=== PATIENT | male | born 1955 | race Caucasian/White ===

== ENCOUNTER 2016-05-13 17:07 | Outpatient (CLI) | payer MEDICARE, OTHER ==
[2016-05-13 17:44] LABS: BASOPHILS % 0.1 (0.0-1.5); EOSINOPHILS % 0.5 % (0.0-6.8); LYMPHOCYTES # 0.5 # k/uL (0.6-4.0); MEAN CORPUSCULAR HEMOGLOBIN 25.5 pg (28.0-34.0); MONOCYTES # 0.3 # k/uL (0.0-0.9); MONOCYTES % 5.9 % (0.0-11.0); NEUTROPHILS # 4.1 # k/uL (1.4-7.7)
[2016-05-13 17:58] LABS: eGFR (African) > 60; eGFR (Non-African) > 60
== END 2016-05-13 17:10 ==
LOC: LABRHC 17:07
PROVIDERS: ATTEND Family Medicine
DX: Z12.5 Encounter for screening for malignant neoplasm of prostate (principal); I48.91 Unspecified atrial fibrillation; E03.9 Hypothyroidism, unspecified; R73.9 Hyperglycemia, unspecified; E79.0 Hyperuricemia without signs of inflammatory arthritis and tophaceous disease; I10 Essential (primary) hypertension; R79.1 Abnormal coagulation profile
CPT/HCPCS: 80053; 80162; 83036; 84153; 84443; 84550; 85025

== ENCOUNTER 2016-05-27 16:07 | Emergency (ER) | payer MEDICARE, OTHER ==
[2016-05-27] MEDS ORDERED: 0.9 % SODIUM CHLORIDE 1,000 ML IV ONE (16:23)
--- NOTE | 2016-05-27 16:28 | ED Physician Documentation ---
Palpitations - HISTORIAN Historian: patient - HPI Chief Complaint: Palpitations Additional Information: 61 yo M here from work for palpitations, diaphoresis. States only medical history is HTN. Symptoms started - PAST HX Home Medications: Ambulatory Orders Medication Instructions Recorded Aripiprazole [Abilify] 15 mg PO DAILY u2 07/26/15 Prazosin HCl 12 mg PO HS av 07/26/15 Cyanocobalamin (Vitamin B-12) 2,500 mcg SL DAILY u2 09/05/15 [Vitamin B-12] Diphenhydramine HCl [Benadryl] 25 mg PO 2 tabs prn PRN av 09/05/15 Hydroxyzine HCl 25 mg PO 1tab BID 2 tabs HS u2 09/05/15 Loperamide HCl [Anti-Diarrhea] 2 mg PO 2 tabs prn PRN u2 09/05/15 Simethicone 125 mg PO DAILY av 09/05/15 ED Results Lab/Radiology - Orders Orders: ED Orders Category Date Time Status Place Saline Lock/IV Now Care 05/27/16 16:21 Active CHEST 1 VIEW [RAD] Stat Exams 05/27/16 Ordered CBC/PLATELET/DIFF Stat Lab 05/27/16 16:22 Ordered CMP [CMP] Routine Lab 05/27/16 16:22 Ordered NT-proBNP Stat Lab 05/27/16 Ordered TROPONIN I (cTnI) Stat Lab 05/27/16 Ordered UA [URINALYSIS] Routine Lab 05/27/16 16:22 Ordered 0.9 % Sodium Chloride [Normal Saline] 1,000 ml Med 05/27/16 16:23 Active IV Q1H EKG WITH COMPARISON Stat Ther 05/27/16 16:22 Ordered Discharge Home Medications: Ambulatory Orders Aripiprazole [Abilify] 15 mg PO DAILY u2 07/26/15 Prazosin HCl 12 mg PO HS av 07/26/15 Cyanocobalamin (Vitamin B-12) [Vitamin B-12] 2,500 mcg SL DAILY u2 09/05/15 Diphenhydramine HCl [Benadryl] 25 mg PO 2 tabs prn PRN av 09/05/15 Hydroxyzine HCl 25 mg PO 1tab BID 2 tabs HS u2 09/05/15 Loperamide HCl [Anti-Diarrhea] 2 mg PO 2 tabs prn PRN u2 09/05/15 Simethicone 125 mg PO DAILY av 09/05/15
--- NOTE | 2016-05-27 16:32 | ED Physician Documentation ---
General Adult - HISTORIAN Historian: patient - HPI Chief Complaint: Weakness Additional Information: 61 yo M here for weakness. has not felt like eating the past couple of weeks, significant decreased food and fluid intake. No f/c/n/v/d. No abdominal pain. No diarrhea. was walking today and legs felt weak causing him to go to his knee and subsequently the ground. Did not hit his head and no injuries from the fall. Has had similar symptoms with infections in the past. Feels too weak to walk at this point. Does have bed sores per his report. Also has chronic peterson due to chronic dysuria. Medical history includes HTN, HLP, COPD, Afib. Timing: still present - ROS CONST: weakness EYES/ENT: none, sore throat CVS/RESP: denies: chest pain, shortness of breath, cough GI/: denies: abdominal pain, problems urinating MS/SKIN/LYMPH: none NEURO/PSYCH: difficulty walking. denies: headache, fainting, dizziness, tingling, numbness, difficulty with speech - PAST HX Past History: COPD, A-Fib, hypertension, other (HLP) Surgeries/Procedures: cholecystectomy Allergies/Adverse Reactions: Allergies Allergy/AdvReac Type Severity Reaction Status Date / Time penicillin G Allergy Hives Verified 05/27/16 17:46 Home Medications: Ambulatory Orders Medication Instructions Recorded Aripiprazole [Abilify] 15 mg PO DAILY u2 07/26/15 Prazosin HCl 12 mg PO HS av 07/26/15 Cyanocobalamin (Vitamin B-12) 2,500 mcg SL DAILY u2 09/05/15 [Vitamin B-12] Diphenhydramine HCl [Benadryl] 25 mg PO 2 tabs prn PRN av 09/05/15 Hydroxyzine HCl 25 mg PO 1tab BID 2 tabs HS u2 09/05/15 Loperamide HCl [Anti-Diarrhea] 2 mg PO 2 tabs prn PRN u2 09/05/15 Simethicone 125 mg PO DAILY av 09/05/15 - SOCIAL HX Smoking History: quit greater than 1 year Alcohol Use: none Drug Use: none - FAMILY HX Family History: No - REVIEWED ASSESSMENTS Nursing Assessment Reviewed: Yes Vitals Reviewed: Yes ED Results Lab/Radiology - Radiology Radiology Impressions: EKG: afib rate 113, normal intervals outside of [place]. Normal axis, no ectopy, No acute ST or T wave changes. - Orders Orders: ED Orders Category Date Time Status Place Saline Lock/IV Now Care 05/27/16 16:21 Active CHEST 1 VIEW [RAD] Stat Exams 05/27/16 Ordered CBC/PLATELET/DIFF Stat Lab 05/27/16 16:22 Ordered CMP [CMP] Routine Lab 05/27/16 16:22 Ordered NT-proBNP Stat Lab 05/27/16 Ordered TROPONIN I (cTnI) Stat Lab 05/27/16 Ordered UA [URINALYSIS] Routine Lab 05/27/16 16:22 Ordered 0.9 % Sodium Chloride [Normal Saline] 1,000 ml Med 05/27/16 16:23 Active IV Q1H EKG WITH COMPARISON Stat Ther 05/27/16 16:22 Ordered General Adult Physical Exam - PHYSICAL EXAM GENERAL APPEARANCE: no distress EENT: dry mucous membranes NECK: normal inspection, supple. No: lymphadenopathy RESPIRATORY: no resp distress, chest non-tender, breath sounds normal CVS: heart sounds normal, irregularly irregular rhy ABDOMEN: soft, normal bowel sounds, no distension, non-tender, other (obsese) SKIN: warm/dry, normal color EXTREMITIES: non-tender, edema (2+ b/l LE edema) NEURO: oriented X3, CN's nml as tested, motor nml, sensation nml Discharge Clincal Impression: Dehydration, Elevated INR Afib Qualifiers: Atrial fibrillation type: chronic Qualified Code(s): I48.2 - Chronic atrial fibrillation Referrals: Jonathan Adair MD [Primary Care Provider] - 2 Days Home Medications: Ambulatory Orders Aripiprazole [Abilify] 15 mg PO DAILY u2 07/26/15 Prazosin HCl 12 mg PO HS av 07/26/15 Cyanocobalamin (Vitamin B-12) [Vitamin B-12] 2,500 mcg SL DAILY u2 09/05/15 Diphenhydramine HCl [Benadryl] 25 mg PO 2 tabs prn PRN av 09/05/15 Hydroxyzine HCl 25 mg PO 1tab BID 2 tabs HS u2 09/05/15 Loperamide HCl [Anti-Diarrhea] 2 mg PO 2 tabs prn PRN u2 09/05/15 Simethicone 125 mg PO DAILY av 09/05/15 Comments: Patient hemodynamically stable. He is in afib with episodes into the 110's but asymptomatic during these bouts and has not taken home metoprolol today. Ambulatory to toilet in ER. Labs reassuring. Given NS bolus and feeling better. INR is 5+ but was 8 when checked at PCM last week. Advised to continue plan as per PCM for INR treatment. Did not hit his head during fall, no AMS. Urine not infected, no evidence for systemic infection. Mild anemia which appears chronic on record review. Discussed and rec f/u with PCM. Condition: Good Disposition: 01 HOME, SELF-CARE Decision to Admit: NO Decision Time: 20:12
--- NOTE | 2016-05-27 16:36 | Diagnostic Imaging Report ---
[facility] [address] [facility].[address] 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 The heart is at the upper limits of normal in size. There is mild pulmonary vascular congestion.. The bony thorax is unremarkable. No pneumothorax or pleural effusion is seen. Impression: Pulmonary vascular congestion Clear peripheral lung godoy Electronically signed on May 27, 2016 4:34:26 PM [employer]Y CE[employer] ASSEMBL[employer] MACHINE TENDER by: Wilbert MARTINEZ
[2016-05-27 17:44] LABS: BASOPHILS % 0.2 (0.0-1.5); EOSINOPHILS % 0.3 % (0.0-6.8); LYMPHOCYTES # 0.5 # k/uL (0.6-4.0); MONOCYTES # 0.4 # k/uL (0.0-0.9); MONOCYTES % 6.4 % (0.0-11.0); NEUTROPHILS # 4.9 # k/uL (1.4-7.7)
[2016-05-27 18:08] LABS: eGFR (African) > 60; eGFR (Non-African) > 60
[2016-05-27] MEDS ORDERED: HYDROcodone /APAP 5/325 1 EACH TABLET PO ONE (19:04)
[2016-05-27] MEDS ORDERED: METOPROLOL TARTRATE 50 MG TABLET PO ONE (19:29)
[2016-05-27 21:39] VITALS: BP 141/82
[2016-05-28 06:01] LABS: APPEARANCE,URINE CLEAR (CLEAR); COLOR,URINE YELLOW (YELLOW); OCCULT BLOOD,URINE 32 (NEGATIVE); UROBILINOGEN URINE >=8.0 Eu (0.2-1.0)
== END 2016-05-27 20:37 | disposition home or self-care (01) ==
LOC: ED 16:07
DX: I48.2 Chronic atrial fibrillation (principal); E86.0 Dehydration
CPT/HCPCS: 71010; 80053; 80162; 83880; 84484; 85025; 85610; 87040; A9270; J7030; 81002; 99283; S1016

== ENCOUNTER 2016-06-10 17:10 | Emergency (ER) | payer MEDICARE, OTHER ==
--- NOTE | 2016-06-10 17:25 | ED Physician Documentation ---
General Adult - HISTORIAN Historian: patient, paramedics - HPI Stated Complaint: Blood in FC Chief Complaint: General Adult Onset: days ago (2) Timing: still present Severity: moderate Further Comments: yes (Pt is a 61 yo male with morbid obesity and a catheter for chronic dysuria. Pt was supposed to move to a care home today, when it was noticed that he had blood in his peterson catheter. Pt c/o having no appetite and not eating or drinking very much for several days. Pt has irritible bowel syndrome. His bm's have been as they usually are, he says. Other PMHx includes COPD, Afib, HTN, HLD. Pt is supposed to be on Bactrim, but based on pill counts and date prescribed, it appears he has not been taking it as he is supposed to.) - ROS CONST: weakness, other (malaise, no appetitie) EYES/ENT: none CVS/RESP: none GI/: problems urinating (chronic dysuria with indwelling peterson cath. -- blood in cath today.) MS/SKIN/LYMPH: other (R leg lesion) - PAST HX Past History: COPD, A-Fib, hypertension, other (HLD, Psych d/o.) Surgeries/Procedures: cholecystectomy Allergies/Adverse Reactions: Allergies Allergy/AdvReac Type Severity Reaction Status Date / Time penicillin G Allergy Hives Verified 06/10/16 17:40 Home Medications: Ambulatory Orders Medication Instructions Recorded Aripiprazole [Abilify] 10 mg PO HS u2 07/26/15 Prazosin HCl 12 mg PO HS av 07/26/15 Hydroxyzine HCl 25 mg PO 1tab BID 2 tabs HS u2 09/05/15 Simethicone 125 mg PO DAILY av 09/05/15 Hydrocodone/Acetaminophen 1 each PO TID PRN 06/10/16 [Hydrocodon-Acetaminophen 5-325] Sulfamethoxazole/Trimethoprim 1 each PO BID 06/10/16 [Bactrim Ds] - SOCIAL HX Smoking History: non-smoker - FAMILY HX Family History: No - VITAL SIGNS Vital Signs: Vital Signs Temp Pulse Resp BP Pulse Ox 98.1 F 94 H 18 134/59 99 06/10/16 17:10 06/10/16 17:10 06/10/16 17:10 06/10/16 17:10 03/06/17 17:10 Progress - Progress Progress: Peterson catheter changed NS 500 cc IVF hematuria without wbc's in u/a TSH, Digoxin level pending. Continue Bactrim DS x 7 days d/c to care home, f/u pcp. ED Results Lab/Radiology - Orders Orders: ED Orders Category Date Time Status BNP [NT-proBNP] Stat Lab 06/10/16 Ordered CBC/PLATELET/DIFF Routine Lab 06/10/16 Ordered CMP Routine Lab 06/10/16 Ordered General Adult Physical Exam - PHYSICAL EXAM GENERAL APPEARANCE: mild distress EENT: dry mucous membranes NECK: normal inspection, supple RESPIRATORY: no resp distress, chest non-tender, breath sounds normal, other ( distant breath sounds) CVS: irregularly irregular rhy ABDOMEN: soft, no organomegaly, normal bowel sounds. No: tenderness BACK: normal inspection SKIN: warm/dry, normal color EXTREMITIES: non-tender, normal range of motion, edema, other NEURO: oriented X3, motor nml, sensation nml Discharge Clincal Impression: Mild dehydration, Hematuria, Afib Referrals: Jonathan Adair MD [Primary Care Provider] - Home Medications: Ambulatory Orders Aripiprazole [Abilify] 10 mg PO HS u2 07/26/15 Prazosin HCl 12 mg PO HS av 07/26/15 Hydroxyzine HCl 25 mg PO 1tab BID 2 tabs HS u2 09/05/15 Simethicone 125 mg PO DAILY av 09/05/15 Hydrocodone/Acetaminophen [Hydrocodon-Acetaminophen 5-325] 1 each PO TID PRN 09/21 Sulfamethoxazole/Trimethoprim [Bactrim Ds] 1 each PO BID 06/10/16 Condition: Stable Disposition: 04 XFER [facility] Decision to Admit: NO Decision Time: 18:31
[2016-06-10] MEDS ORDERED: 0.9 % SODIUM CHLORIDE 1,000 ML IV ONE (17:30)
[2016-06-10 18:04] LABS: BASOPHILS % 0.2 (0.0-1.5); EOSINOPHILS % 0.6 % (0.0-6.8); LYMPHOCYTES # 0.6 # k/uL (0.6-4.0); MEAN CORPUSCULAR HEMOGLOBIN 23.3 pg (28.0-34.0); MONOCYTES # 0.5 # k/uL (0.0-0.9); MONOCYTES % 6.6 % (0.0-11.0); NEUTROPHILS # 5.7 # k/uL (1.4-7.7)
[2016-06-10 18:06] LABS: APPEARANCE,URINE Cloudy (CLEAR); COLOR,URINE Amber (YELLOW); OCCULT BLOOD,URINE 3+ (NEGATIVE); PH URINE 5.5 (5.0 - 8.0); UROBILINOGEN URINE >=8.0 Eu (0.2-1.0)
[2016-06-10 18:16] LABS: AMORPHOUS SEDIMENT,UR FEW (NEGATIVE)
[2016-06-10 18:21] LABS: eGFR (African) > 60; eGFR (Non-African) > 60
[2016-06-10 18:52] VITALS: BP 114/65
== END 2016-06-10 18:50 ==
LOC: ED 17:10
DX: E86.0 Dehydration (principal); I48.91 Unspecified atrial fibrillation; R31.9 Hematuria, unspecified
CPT/HCPCS: 36415; 51702; 80053; 80162; 81002; 83880; 84443; 85025; 85610; J7030; 99283; S1016

== ENCOUNTER 2016-06-21 02:43 | Observation (INO) | payer MEDICARE, OTHER ==
[2016-06-21] MEDS ORDERED: 0.9 % SODIUM CHLORIDE 500 ML IV ONE (03:15)
[2016-06-21] MEDS ORDERED: DILTIAZEM HCL 25 MG/ 5ML VIAL IVP ONE ×2 (03:15→04:06)
[2016-06-21] MEDS ORDERED: 0.9 % SODIUM CHLORIDE 1,000 ML IV ONE (03:38)
[2016-06-21 03:58] LABS: BASOPHILS % 0.1 (0.0-1.5); EOSINOPHILS % 0.1 % (0.0-6.8); LYMPHOCYTES # 0.3 # k/uL (0.6-4.0); MEAN CORPUSCULAR HEMOGLOBIN 22.6 pg (28.0-34.0); MONOCYTES # 0.3 # k/uL (0.0-0.9); MONOCYTES % 5.2 % (0.0-11.0); NEUTROPHILS # 4.9 # k/uL (1.4-7.7)
[2016-06-21] MEDS ORDERED: 0.9 % SODIUM CHLORIDE 1,000 ML IV SCH ×2 (04:00→06:08)
[2016-06-21 04:24] LABS: eGFR (African) > 60; eGFR (Non-African) > 60
[2016-06-21] MEDS ORDERED: DILTIAZEM HCL 125 MG in 0.9 % SODIUM CHLORIDE 100 ML IV STA ×2 (04:36→06:08)
[2016-06-21] MEDS ORDERED: BUDESONIDE 0.5MG/2ML AMPUL.NEB NEB ONE (04:38)
[2016-06-21] MEDS ORDERED: BUDESONIDE 0.5MG/2ML AMPUL.NEB NEB SCH ×2 (05:00→09:00)
[2016-06-21] MEDS ORDERED: METOPROLOL TARTRATE 5 MG/5 ML VIAL IVP ONE (05:01)
--- NOTE | 2016-06-21 05:51 | ED Physician Documentation ---
Fall - HISTORIAN Historian: patient, other (nh staff) - HPI Stated Complaint: Fell approx. 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) Where: other (snf) Context: other (fell from laying) Associated Symptoms:: no loss of consciousness Location of Pain/Injury: other (none) Injury to Right Extremity: none Injury to Left Extremity: none Further Comments: no - ROS CONST: no problems NEURO: denies: dizziness, anxiety, depression MS/SKIN/LYMPH: denies: weakness, numbness, neck pain, back pain, ankle swelling , leg swelling, rash EYES/ENT: none CVS/RESP: none GI/: denies: problems urinating, nausea, vomiting - PAST HX Past History: A-Fib, COPD Immunizations: referred to PCP Allergies/Adverse Reactions: Allergies Allergy/AdvReac Type Severity Reaction Status Date / Time penicillin G Allergy Hives Verified 06/21/16 03:15 Home Medications: Ambulatory Orders Medication Instructions Recorded Hydroxyzine HCl 25 mg PO 1tab BID 2 tabs HS u2 09/05/15 Albuterol Sulfate [Proair 2 puff IH Q4 PRN 06/21/16 Respiclick] Aripiprazole [Abilify] 15 mg PO D 06/21/16 Finasteride [Proscar] 5 mg PO D 06/21/16 Furosemide [Lasix] 40 mg PO BID 06/21/16 Gabapentin 100 mg PO BID 06/21/16 Levothyroxine Sodium [Unithroid] 175 mcg PO D 06/21/16 Warfarin Sodium 3 mg PO D 06/21/16 - SOCIAL HX Smoking History: non-smoker Alcohol Use: none Drug Use: none - FAMILY HX Family History: no significant history - VITAL SIGNS Vital Signs: Vital Signs Temp Pulse Resp BP Pulse Ox 97.8 F 132 H 20 113/90 89 L 06/21/16 02:53 06/21/16 02:53 06/21/16 02:53 06/21/16 02:53 06/21/16 02:53 - REVIEWED ASSESSMENTS Nursing Assessment Reviewed: Yes Vitals Reviewed: Yes Progress - Results/Orders Results/Orders: cbc, cmp, ua, pt/ptt/inr, bnp, ekg, cxr, c-spine ordered - Progress Progress: pt. given 20 mg followed by 40 mg Cardizem ivp followed by drip at 10 mg/hr, 5 mg metoprolol ivp and 1 liter ns in er, stable entire time in er, actually significantly improved in er clinically, no evidence at all of any head trauma or concussion Critical Care Note - Critical Care Note Total Time (mins): 0 ED Results Lab/Radiology - Lab Results Lab Results: Lab Results 06/21/16 06/21/16 06/21/16 05:04 03:53 03:53 WBC RBC Hgb Hct MCV MCH MCHC RDW Plt Count Neut % (Auto) Lymph % (Auto) [place] % (Auto) Eos % (Auto) Baso % (Auto) Neut # Lymph # [place] # Eos # Baso # Reactive Lymphs % Reactive Lymphs # PT 26.9 Seconds H Seconds (9.7-11.5) INR 2.5 H (0.9-1.1) APTT 38.5 Seconds H Seconds (24.5-32.8) Sodium 141 mmol/L mmol/L (136-145) Potassium 4.3 mmol/L mmol/L (3.5-5.0) Chloride 105 mmol/L mmol/L (98-110) Carbon Dioxide 32 mmol/L mmol/L (20-32) BUN 19 mg/dL mg/dL (10-26) Creatinine 0.7 mg/dL mg/dL (0.4-1.5) Estimated Creat Clear 273 Est GFR ( Amer) > 60 (60 - ) Est GFR (Non-Af Amer) > 60 (60 - ) Glucose 151 mg/dL H mg/dL (70-99) Calcium 9.0 mg/dL mg/dL (8.5-10.5) Total Bilirubin 0.9 mg/dL mg/dL (0.2-1.2) AST 63 U/L H U/L (0-41) ALT 37 U/L U/L (0-45) Alkaline Phosphatase 130 U/L H U/L (46-116) NT-Pro-B Natriuret Pep 2545.1 pg/mL H pg/mL (15.0-125.0) Total Protein 6.6 g/dL g/dL (6.0-8.5) Albumin 3.2 g/dL g/dL (3.0-5.5) 06/21/16 03:53 WBC 5.50 K/ul K/ul (4.00-12.00) RBC 3.48 M/ul L M/ul (3.90-5.20) Hgb 7.9 g/dL L g/dL (12.0-18.0) Hct 28.9 % L % (37.0-53.0) MCV 83.3 fl fl (80.0-100.0) MCH 22.6 pg L pg (28.0-34.0) MCHC 27.2 g/dL L g/dL (30.0-36.0) RDW 16.3 % H % (11.3-14.3) Plt Count 317 K/mm3 K/mm3 (130-400) Neut % (Auto) 88.5 % H % (39.0-79.0) Lymph % (Auto) 4.9 % L % (16.0-50.0) [place] % (Auto) 5.2 % % (0.0-11.0) Eos % (Auto) 0.1 % % (0.0-6.8) Baso % (Auto) 0.1 (0.0-1.5) Neut # 4.9 # k/uL # k/uL (1.4-7.7) Lymph # 0.3 # k/uL L # k/uL (0.6-4.0) [place] # 0.3 # k/uL # k/uL (0.0-0.9) Eos # 0.0 # k/uL # k/uL (0.0-0.6) Baso # 0.0 # k/uL # k/uL (0.0-0.5) Reactive Lymphs % 1.3 % % (0.0-5.0) Reactive Lymphs # 0.1 # k/uL # k/uL (0.0-0.8) PT INR APTT Sodium Potassium Chloride Carbon Dioxide BUN Creatinine Estimated Creat Clear Est GFR ( Amer) Est GFR (Non-Af Amer) Glucose Calcium Total Bilirubin AST ALT Alkaline Phosphatase NT-Pro-B Natriuret Pep Total Protein Albumin - Radiology Radiology Impressions: cxr vascular congestion unchanged since , c-spine no fx - Orders Orders: ED Orders Category Date Time Status Place Saline Lock/IV Now Care 06/21/16 03:15 Active C SPINE 2 OR 3 VIEWS [RAD] Stat Exams 06/21/16 Taken CHEST 1 VIEW [RAD] Routine Exams 06/21/16 Taken BNP [NT-proBNP] Routine Lab 06/21/16 05:04 Completed CBC/PLATELET/DIFF Routine Lab 06/21/16 03:53 Completed CMP Routine Lab 06/21/16 03:53 Completed PT-INR Routine Lab 06/21/16 03:53 Completed PTT Routine Lab 06/21/16 03:53 Completed URINALYSIS Routine Lab 06/21/16 Ordered 0.9 % Sodium Chloride [Normal Saline] 1,000 ml Med 06/21/16 04:00 Ordered IV .Q1H 0.9 % Sodium Chloride [Normal Saline] 500 ml Med 06/21/16 03:15 Discontinued IV NOW Budesonide [Pulmicort] Med 06/21/16 05:00 Ordered 0.5 mg NEB 1T Diltiazem HCl [Cardizem] Med 06/21/16 03:15 Discontinued 20 mg IVP STAT ONE Diltiazem HCl [Cardizem] Med 06/21/16 04:06 Discontinued 40 mg IVP STAT ONE Diltiazem HCl [Cardizem] 125 mg Med 06/21/16 04:36 Active 0.9 % Sodium Chloride [Sodium Chloride] 100 ml IV 1T Metoprolol Tartrate [Toprol] Med 06/21/16 05:01 Discontinued 5 mg IVP NOW ONE Oxygen Daily Oxygen 06/21/16 03:30 Ordered Transfer Routine Transfer 06/21/16 Ordered Fall Physical Exam - Physical Exam General Appearance: no acute distress, alert Head: non-tender, no swelling, no obvious injury. No: raccoon eyes, Espinoza's sign Neck: non-tender, painless ROM, trachea midline Eye: ANNIKA, EOMI, lids & conjunct. nml ENT: nml external inspection, no dental injury, no oral injury, airway nml Resp/CVS: chest non-tender, no ecchymosis, breath sounds nml, no resp. distress , tachycardia, other (a-fib, irr) Abdomen: soft, no organomegaly, normal bowel sounds, no abdominal bruit, no distension, non-tender Neuro: oriented x3, CN's nml as tested, sensation nml, motor nml, mood/affect nml, airplane pilot nml, reflexes nml, airplane pilot symmetrical Skin: color nml, no rash Back: normal inspection, no CVA tenderness, no vertebral tenderness Extremities: atraumatic, pelvis stable, hips non-tender, no pedal edema Joint: joints nml, nml ROM. No: ligamentous instability - Karon Coma Score Eyes Open: Spontaneous Speech: Oriented Motor: Obeys Commands (15) Discharge Clincal Impression: Atrial fibrillation with rapid ventricular response Fall Qualifiers: Encounter type: initial encounter Qualified Code(s): W19.XXXA - Unspecified fall, initial encounter Home Medications: Ambulatory Orders Hydroxyzine HCl 25 mg PO 1tab BID 2 tabs HS u2 09/05/15 Albuterol Sulfate [Proair Respiclick] 2 puff IH Q4 PRN 06/21/16 Aripiprazole [Abilify] 15 mg PO D 06/21/16 Finasteride [Proscar] 5 mg PO D 06/21/16 Furosemide [Lasix] 40 mg PO BID 06/21/16 Gabapentin 100 mg PO BID 06/21/16 Levothyroxine Sodium [Unithroid] 175 mcg PO D 06/21/16 Warfarin Sodium 3 mg PO D 06/21/16 Condition: Stable Disposition: ADMITTED INPATIENT Decision to Admit: [id number] Decision Time: 05:30
[2016-06-21] MEDS ORDERED: ARIPIPRAZOLE 2 MG TABLET PO SCH (06:08)
[2016-06-21] MEDS ORDERED: LEVOTHYROXINE SODIUM 25 MCG TABLET ONE (06:38)
[2016-06-21] MEDS ORDERED: LEVOTHYROXINE SODIUM 100 MCG TABLET PO ONE (06:38)
[2016-06-21 06:48] VITALS: BMI 55.2
--- NOTE | 2016-06-21 06:55 | Diagnostic Imaging Report ---
ALFREDO WING~ [facility] [address] [facility].[address] [address] ~ ~ ~ ~ Report Submission Date: Jun 21, 2016 5:30:01 AM CDT Patient ~ Study Name: MASOUD ANGULO ~ Date: Jun 21, 2016 4:26:01 AM CDT ~ Modality Type: CR Gender: M ~ Description: CHEST : 55 ~ Institution: [facility] Physician: ALFREDO WING ~ ~ ~ ~ Chest, AP portable History: Dyspnea Findings: No infiltrate, effusion or pneumothorax is present. Heart size is normal. Pulmonary vascular congestion is present. ~Since 27 May 2016, no change has occurred. Impression: Pulmonary vascular congestion. ~ Electronically signed on Jun 21, 2016 5:30:01 AM CDT by: Jhony MARTINEZ
--- NOTE | 2016-06-21 06:56 | Diagnostic Imaging Report ---
Name: MASOUD ANGULO ~~ ~~ : 55 ~~ Acc #: [id number]~~ DOS: Jun 21, 2016 4:16:47 AM CDT ~~ Mod: CR ~~ Desc: SPINE 1 of 1 ALFREDO WING~ [facility] [address] [facility].[address] [address] ~ ~ ~ ~ Report Submission Date: Jun 21, 2016 5:28:56 AM CDT Patient ~ Study Name: MASOUD ANGULO ~ Date: Jun 21, 2016 4:16:47 AM CDT ~ Modality Type: CR Gender: M ~ Description: SPINE : 55 ~ Institution: [facility] Physician: ALFREDO WING ~ ~ ~ ~ Cervical spine, AP and lateral History: Fall Findings: Examination is severely limited by patient size and technique. Only the upper 5 cervical vertebra are visualized on the lateral view. There is no gross evidence of fracture or subluxation in the visualized vertebral bodies. Degenerative changes of the facet joints are present. Degenerative disc disease with loss of disc height is also present. Prevertebral soft tissues are normal. Impression: No gross abnormality identified in this severely limited study. ~ Electronically signed on Jun 21, 2016 5:28:56 AM CDT by: Johny MARTINEZ
[2016-06-21] MEDS ORDERED: LEVOTHYROXINE SODIUM 100 MCG TABLET PO SCH (07:00)
[2016-06-21] MEDS ORDERED: WARFARIN SODIUM 1 MG TABLET PO SCH ×2 (09:00→18:00)
[2016-06-21] MEDS ORDERED: MENTHOL/ZINC OXIDE 1 APPL TUBE TP SCH (09:00)
[2016-06-21] MEDS ORDERED: FUROSEMIDE 40 MG TABLET PO SCH (09:00)
[2016-06-21] MEDS ORDERED: FINASTERIDE 5 MG TABLET PO SCH (09:00)
[2016-06-21] MEDS ORDERED: METOPROLOL SUCCINATE 50 MG TAB.ER.24H PO SCH (09:00)
[2016-06-21] MEDS ORDERED: ALLOPURINOL 100 MG TABLET PO SCH (09:00)
[2016-06-21] MEDS: GABAPENTIN 100 MG CAPSULE PO SCH ×3 (09:28→17:29)
[2016-06-21] MEDS: IPRATROPIUM/ALBUTEROL SULFATE 3 ML AMPUL.NEB NEB SCH ×3 (09:34→17:32)
[2016-06-21] MEDS: POTASSIUM CHLORIDE 20 MEQ TABLET.ER PO SCH ×3 (09:36→17:29)
[2016-06-21] MEDS ORDERED: DILTIAZEM HCL 125 MG in 0.9 % SODIUM CHLORIDE 100 ML IV PRN (12:06)
[2016-06-21] MEDS ORDERED: DIGOXIN 125 MCG TABLET PO ONE ×2 (12:07→13:21)
[2016-06-21] MEDS ORDERED: DILTIAZEM HCL 120 MG CAP.ER.24H PO SCH (13:00)
[2016-06-21] MEDS ORDERED: HYDROXYZINE HCL 25 MG TABLET PO SCH ×3 (15:00→21:00)
[2016-06-21 15:02] LABS: MEAN CORPUSCULAR HEMOGLOBIN 23.2 pg (28.0-34.0)
--- NOTE | 2016-06-21 17:57 | Discharge Summary ---
Discharge Summary - Discharge Sumary History of Present Illness: Presented last night with hr 150 - 170, a fib with rvr Condition at Discharge: Stable Home Medications: Ambulatory Orders Medication Instructions Recorded Hydroxyzine HCl 25 mg PO 1tab BID 2 tabs HS u2 09/05/15 Albuterol Sulfate [Proair 2 puff IH Q4 PRN 06/21/16 Respiclick] Aripiprazole [Abilify] 15 mg PO D 06/21/16 Finasteride [Proscar] 5 mg PO D 06/21/16 Furosemide [Lasix] 40 mg PO BID 06/21/16 Gabapentin 100 mg PO BID 06/21/16 Levothyroxine Sodium [Unithroid] 175 mcg PO D 06/21/16 Warfarin Sodium 3 mg PO D 06/21/16 Consultations this Visit: None Procedures this Visit: None Allergies/Adverse Reactions: Allergies Allergy/AdvReac Type Severity Reaction Status Date / Time penicillin G Allergy Hives Verified 06/21/16 03:15 Patient Problems: Current Active Problems Problem Status Onset Atrial fibrillation with rapid ventricular response Acute Fall Acute Discharge Summary: pt. responded well to Cardizem drip at 10 mg/hr. Was converted to cardizem CD 240 mg daily p.o. Also started on Lanoxin 0.125 mg p.o. daily. Received 1 liter ns and monitored for neuro defecits from fall as was too heavy for head ct scan. No neuro defecits noted. Discharged in stable condition to MS. Hospital Course: pt. responded well to therapy and was discharged in stable condition
[2016-06-21 18:45] VITALS: BP 114/65
[2016-06-21] MEDS ORDERED: PRAVASTATIN SODIUM 20 MG TABLET PO SCH (21:00)
[2016-06-22] MEDS ORDERED: LEVOTHYROXINE SODIUM 25 MCG TABLET PO SCH (07:00)
[2016-06-22] MEDS ORDERED: LEVOTHYROXINE SODIUM 100 MCG TABLET PO SCH (07:00)
== END 2016-06-21 18:45 ==
LOC: ED 02:43 → SOUTH 05:49
PROVIDERS: ADMIT Emergency Medicine; ATTEND Emergency Medicine
DX: I48.91 Unspecified atrial fibrillation (principal); W19.XXXA Unspecified fall, initial encounter; Y93.9 Activity, unspecified; Y99.9 Unspecified external cause status
CPT/HCPCS: 36415; 71010; 72040; 80053; 83880; 85014; 85018; 85025; 85610; 85730; 93005; A9270; G0378; J3490; J7030; J7626; 96361; 96365; 96367; S1016